=== PATIENT | male | born 1940 | race Asian ===

== ENCOUNTER 2021-05-17 07:44 | Emergency (ER) | payer MEDICARE, OTHER ==
[~2021-05-17] VITALS: Ht 165.1 cm; Wt 49.9 kg
[2021-05-17 11:16] VITALS: BP 134/62
== END 2021-05-17 11:47 | disposition home or self-care (01) ==
LOC: ER 07:44
DX: S01.81XA Laceration without foreign body of other part of head, initial encounter (principal); E11.9 Type 2 diabetes mellitus without complications; W18.39XA Other fall on same level, initial encounter; Y93.89 Activity, other specified; Y92.89 Other specified places as the place of occurrence of the external cause; Y99.8 Other external cause status
CPT/HCPCS: 12011; 70450; 70486; 72125; 99284; J2001

== ENCOUNTER 2022-06-13 12:39 | Inpatient (IN) | payer MEDICARE, OTHER ==
[~2022-06-13] VITALS: Ht 160 cm; Wt 46.2 kg
[2022-06-13] MEDS ORDERED: SODIUM CHLORIDE 0.9% 1,000 ML IV ONE (13:00)
[2022-06-13 14:23] LABS: Basophils # (auto) 0 10 ^3/uL (0-0.2); Basophils % (auto) 0.3 % (0.0-2.0); Eosinophils # (auto) 0 10 ^3/uL (0-0.8); Eosinophils % (auto) 0.1 % (0.0-7.0); Hematocrit 38.3 % (41.0-53.0); Hemoglobin 12.7 g/dL (13.5-17.5); Lymphocytes # (auto) 1.6 10 ^3/uL (0.4-5.4); Lymphocytes % (auto) 11.7 % (10.0-50.0); Mean Corpuscular Hemoglobin 32.9 pg (28.0-32.0); Mean Corpuscular Hgb Conc. 33.1 g/dL (32.0-36.0); Mean Corpuscular Volume 99.2 fL (80.0-100.0); Monocytes # (auto) 0.6 10 ^3/uL (0-1.3); Neutrophils # (auto) 11.7 10 ^3/uL (1.6-8.6); Neutrophils % (auto) 83.9 % (37.0-80.0); Red Blood Cells 3.86 10^6/uL (4.5-5.90); Red Cell Distribution Width 12.8 % (11.8-14.3); White Blood Cell 13.9 10^3/uL (4.4-10.8)
[2022-06-13 14:39] LABS: Albumin 3.9 g/dL (3.4-5.0); Calcium 9.3 mg/dL (8.5-10.1); Potassium 3.7 mmol/L (3.5-5.1)
[2022-06-13 14:43] LABS: BUN/Creatinine Ratio 51.4; Total Protein 7.4 g/dL (6.4-8.2)
[2022-06-13] MEDS ORDERED: cefTRIAXone 1GM/50ML D5W 50 ML IV ONE ×2 (16:15→16:45)
[2022-06-13 18:27] LABS: Lactic Acid w/Reflex 2.3 mmol/L (0.4-2.0)
[2022-06-13 21:49] LABS: Albumin 3.5 g/dL (3.4-5.0); BUN/Creatinine Ratio 54.8; Calcium 9.4 mg/dL (8.5-10.1); Potassium 3.6 mmol/L (3.5-5.1)
[2022-06-13 21:52] LABS: Bilirubin, Total 0.7 mg/dL (0.2-1.0); Total Protein 7.3 g/dL (6.4-8.2)
[2022-06-13] MEDS ORDERED: ONDANSETRON HCL 4 MG/2 ML VIAL IV PRN (22:30)
[2022-06-13] MEDS ORDERED: MORPHINE SULFATE INJ 2 MG/ml SYRG IV PRN (22:30)
[2022-06-13] MEDS ORDERED: SODIUM CHLORIDE 0.9% 1,000 ML IV SCH (22:30)
[2022-06-13] MEDS ORDERED: HYDROcodone-ACET 5/325MG TAB PO PRN (22:30)
[2022-06-13] MEDS ORDERED: DOCUSATE SOD 100 MG CAP PO PRN (22:30)
[2022-06-13] MEDS ORDERED: ACETAMINOPHEN 325 MG TAB PO PRN (22:30)
[2022-06-13] MEDS ORDERED: MAALOX PLUS or MAALOX 30 ML PO PRN (22:30)
[2022-06-14] MEDS ORDERED: LORazepam 2MG/ML-1ML VIAL ONE (01:39)
[2022-06-14] MEDS: LORazepam 2MG/ML-1ML VIAL IV PRN ×2 (01:40→15:20)
[2022-06-14 06:14] LABS: Basophils # (auto) 0 10 ^3/uL (0-0.2); Basophils % (auto) 0.2 % (0.0-2.0); Eosinophils # (auto) 0 10 ^3/uL (0-0.8); Eosinophils % (auto) 0.1 % (0.0-7.0); Lymphocytes # (auto) 1.2 10 ^3/uL (0.4-5.4); Lymphocytes % (auto) 12.4 % (10.0-50.0); Mean Corpuscular Hemoglobin 32.9 pg (28.0-32.0); Mean Corpuscular Hgb Conc. 33.2 g/dL (32.0-36.0); Monocytes # (auto) 0.5 10 ^3/uL (0-1.3); Monocytes % (auto) 5.6 % (0.0-12.0); Neutrophils # (auto) 7.8 10 ^3/uL (1.6-8.6); Neutrophils % (auto) 81.7 % (37.0-80.0); Red Blood Cells 3.63 10^6/uL (4.5-5.90); Red Cell Distribution Width 12.7 % (11.8-14.3); White Blood Cell 9.6 10^3/uL (4.4-10.8)
[2022-06-14 06:29] LABS: BUN/Creatinine Ratio 48.3; Calcium 9.2 mg/dL (8.5-10.1); Potassium 3.4 mmol/L (3.5-5.1)
[2022-06-14] MEDS ORDERED: POTASSIUM CHLORIDE 40 MEQ, LIDOCAINE 1% (LOCAL ANESTH.) 4 ML in SODIUM CHL 0.9% 250 ML IV ONE (08:15)
[2022-06-14 08:51] LABS: Magnesium 2.2 mg/dL (1.6-2.6); Phosphorus 2.6 mg/dL (2.5-4.90)
[2022-06-14 08:55] LABS: INR 1.01 (0.9-1.15); Partial Thromboplastin Time 29.8 sec (24.6-33.4)
[2022-06-14] MEDS: D5W/SOD CHL 0.45% 1,000 ML IV SCH ×2 (08:58→22:43)
[2022-06-14 08:59] LABS: Free T4 (Free Thyroxine) 1.22 ng/dL (0.89-1.76)
[2022-06-14 10:32] LABS: Urine Bacteria FEW /hpf (None Seen); Urine Blood 2+ /uL (Negative); Urine Specific Gravity 1.015 (1.001-1.035); Urine WBC 12 /hpf (0 - 3)
[2022-06-14] MEDS: cefTRIAXone 1GM/50ML D5W 50 ML IV SCH (10:44)
[2022-06-14 19:17] LABS: Calcium 8.7 mg/dL (8.5-10.1); Potassium 3.9 mmol/L (3.5-5.1)
[2022-06-14 22:00] VITALS: BP_SYST 114; BP_SYST 96; BP_DIAS 68; BP_DIAS 70
[2022-06-14] MEDS ORDERED: DEXTROSE (50%) 50ML SYRG IV PRN (22:15)
[2022-06-14 22:40] VITALS: BP 114/70
[2022-06-14] MEDS ORDERED: FIN5T PO (22:46)
[2022-06-14] MEDS ORDERED: METF-372 PO (22:46)
[2022-06-14] MEDS ORDERED: TAMS0.4C36 PO (22:46)
[2022-06-14] MEDS ORDERED: ATOR10TA52 PO (22:46)
[2022-06-14] MEDS ORDERED: CYA100I IM (22:47)
[2022-06-14] MEDS ORDERED: ASPI1TAB20 PO (22:47)
[2022-06-14 22:54] LABS: Folate (Folic Acid) 3.91 ng/mL (5.38-24)
[2022-06-14] MEDS: ACCU-CHEK COMFORT CURVE STRIP VI SCH (23:35)
[2022-06-14] MEDS: InsuLIN REG 1unit/0.01ml Soln (100units/ml) SC SCH (23:37)
[2022-06-15 05:05] VITALS: BP 116/58
[2022-06-15] MEDS: InsuLIN REG 1unit/0.01ml Soln (100units/ml) SC SCH ×3 (05:45→16:42)
[2022-06-15] MEDS: ACCU-CHEK COMFORT CURVE STRIP VI SCH ×3 (05:45→16:42)
[2022-06-15 06:23] LABS: Basophils # (auto) 0 10 ^3/uL (0-0.2); Basophils % (auto) 0.3 % (0.0-2.0); Eosinophils # (auto) 0 10 ^3/uL (0-0.8); Eosinophils % (auto) 0.3 % (0.0-7.0); Hematocrit 35.4 % (41.0-53.0); Hemoglobin 11.6 g/dL (13.5-17.5); Lymphocytes # (auto) 1.1 10 ^3/uL (0.4-5.4); Lymphocytes % (auto) 10.8 % (10.0-50.0); Mean Corpuscular Hemoglobin 32.6 pg (28.0-32.0); Mean Corpuscular Hgb Conc. 32.9 g/dL (32.0-36.0); Mean Corpuscular Volume 99.2 fL (80.0-100.0); Monocytes # (auto) 0.6 10 ^3/uL (0-1.3); Monocytes % (auto) 5.7 % (0.0-12.0); Neutrophils # (auto) 8.4 10 ^3/uL (1.6-8.6); Neutrophils % (auto) 82.9 % (37.0-80.0); Red Blood Cells 3.57 10^6/uL (4.5-5.90); Red Cell Distribution Width 12.4 % (11.8-14.3); White Blood Cell 10.1 10^3/uL (4.4-10.8)
[2022-06-15 06:44] LABS: Albumin 2.9 g/dL (3.4-5.0); Calcium 8.5 mg/dL (8.5-10.1); Magnesium 2.3 mg/dL (1.6-2.6)
[2022-06-15 06:48] LABS: BUN/Creatinine Ratio 37.7; Bilirubin, Total 0.8 mg/dL (0.2-1.0); Phosphorus 2.8 mg/dL (2.5-4.90); Total Protein 5.8 g/dL (6.4-8.2)
[2022-06-15 08:05] LABS: Potassium 3.4 mmol/L (3.5-5.1)
[2022-06-15 09:00] VITALS: BP 114/75
[2022-06-15] MEDS: cefTRIAXone 1GM/50ML D5W 50 ML IV SCH (09:17)
[2022-06-15] MEDS ORDERED: FOLIC ACID 1 MG in D5W 5% 50 ML INJ ONE (11:45)
[2022-06-15] MEDS ORDERED: POTASSIUM CHLORIDE 40 MEQ, LIDOCAINE 1% (LOCAL ANESTH.) 4 ML in SODIUM CHL 0.9% 250 ML IV ONE (11:45)
[2022-06-15 13:00] VITALS: BP 147/67
[2022-06-15] MEDS: D5W 5% 1,000 ML IV SCH (13:52)
[2022-06-15 17:00] VITALS: BP 140/60
[2022-06-16] MEDS: ACCU-CHEK COMFORT CURVE STRIP VI SCH ×4 (00:53→17:34)
[2022-06-16] MEDS: D5W 5% 1,000 ML IV SCH ×3 (02:11→17:34)
[2022-06-16] MEDS: InsuLIN REG 1unit/0.01ml Soln (100units/ml) SC SCH ×4 (05:34→17:34)
[2022-06-16 06:51] LABS: Potassium 3.7 mmol/L (3.5-5.1)
[2022-06-16 06:58] LABS: BUN/Creatinine Ratio 23.8; Calcium 8.8 mg/dL (8.5-10.1)
[2022-06-16] MEDS: cefTRIAXone 1GM/50ML D5W 50 ML IV SCH (08:52)
[2022-06-16] MEDS: LORazepam 2MG/ML-1ML VIAL IV PRN (08:52)
[2022-06-16] MEDS ORDERED: FOLIC ACID 1 MG in D5W 5% 50 ML INJ SCH (10:00)
[2022-06-16 16:25] VITALS: BP 140/60
== END 2022-06-16 20:20 | disposition hospice, home (50) | DRG 70 ==
LOC: ER 12:39 → TELE 22:48 → TELE-WESTW 06-14 21:36
PROVIDERS: ADMIT Hospitalist; ATTEND Internal Medicine
DX: G93.41 Metabolic encephalopathy (principal); N17.0 Acute kidney failure with tubular necrosis; E87.0 Hyperosmolality and hypernatremia; S09.90XA Unspecified injury of head, initial encounter; R62.7 Adult failure to thrive; F03.90 Unspecified dementia, unspecified severity, without behavioral disturbance, psychotic disturbance, mood disturbance, and anxiety; G23.1 Progressive supranuclear ophthalmoplegia [Steele-Richardson-Olszewski]; D72.829 Elevated white blood cell count, unspecified; E11.9 Type 2 diabetes mellitus without complications; W18.39XA Other fall on same level, initial encounter; Z66 Do not resuscitate; Z99.3 Dependence on wheelchair; Z74.01 Bed confinement status; Y93.89 Activity, other specified; Y92.89 Other specified places as the place of occurrence of the external cause; Y99.8 Other external cause status
CPT/HCPCS: 36415; 70450; 71045; 80048; 80053; 80320; 81001; 82140; 82550; 82607; 82746; 82962; 83036; 83605; 83735; 83930; 83935; 84100; 84439; 84443; 84484; 85025; 85610; 85730; 87040; 87086; 87426; 93005; 93306; 96361; 96365; 96366; 96367; G0378; J0696; J1815; J2001; J7060